=== PATIENT | female | born 1985 | race African-American/Black ===

== ENCOUNTER 2017-02-13 11:00 | Emergency (ER) | payer SELFPAY ==
[2017-02-13 11:10] VITALS: BP 122/83; PULSE 86; TEMP 98.6; BMI 25.4
--- NOTE | 2017-02-13 11:26 | PDOC ---
History of Present Illness - General Chief Complaint: Ear Problem Stated Complaint: EAR PROBLEM Time Seen by Provider: 02/13/17 11:23 History Source: Patient Exam Limitations: No Limitations - History of Present Illness Initial Comments: CHIEF COMPLAINT: 31 y/o afebrile female with no significant PMH c/o ear pain for the past few days. HISTORY OF PRESENT ILLNESS: The patient does admit to constantly using q-tips. She denies f/c, n/v/d, foul smelling discharge from ears, recent swimming. Vital signs on arrival are within normal limits. REVIEW OF SYSTEMS: GENERAL/CONSTITUTIONAL: No fever/chills. No weakness. No weight change. HEAD, EYES, EARS, NOSE AND THROAT: No change in vision. +ear pain. No sore throat. CARDIOVASCULAR: No chest pain or shortness of breath. RESPIRATORY: No cough, wheezing, or hemoptysis. GASTROINTESTINAL: No vomiting, diarrhea, constipation. GENITOURINARY: No dysuria, frequency, or change in urination. MUSCULOSKELETAL: No joint or muscle swelling or pain. No neck or back pain. SKIN: No rash or easy bruising. NEUROLOGIC: No headache, vertigo, loss of consciousness, or loss of sensation. PHYSICAL EXAM: GENERAL: The patient is awake, alert, and fully oriented, in no acute distress. She is well appearing, ambulatory, in NAD or obvious discomfort. HEAD: Normal with no signs of trauma. ENT: Pupils equal, round and reactive to light, extraocular movements intact, sclera anicteric, conjunctiva clear. Right canal inflammed and erythematous. Left canal minimally inflammed and erythematous. TMs are normal b/l ears without signs of TM rupture. No mastoid TTP. LUNGS: Clear to auscultation bilaterally. Normal excursion. No respiratory distress or use of accessory muscles. CV: RRR, S1/S2, no MRG. Cap refill < 2 sec. ABDOMEN: Soft, non-distended, non-tender even to deep palpation, no hepatomegaly or splenomegaly, no masses. EXTREMITIES: Normal range of motion, no edema. NEUROLOGICAL: Normal speech, normal gait. CN II-XII grossly intact. PSYCH: Normal mood, normal affect. SKIN: Warm, dry, normal turgor, no rashes or lesions noted. Past History - Past Medical History Allergies/Adverse Reactions: Allergies Allergy/AdvReac Type Severity Reaction Status Date / Time No Known Allergies Allergy Verified 02/13/17 11:04 Home Medications: Ambulatory Orders Neomycin/Polymyxn/Hc [Cortisporin Otic Suspenstion -] 5 drop AU Q4HWA #500 drops 02/13/17 Other medical history: none - Psycho/Social/Smoking Cessation Hx Anxiety: No Suicidal Ideation: No Smoking History: Current every day smoker Have you smoked in the past 12 months: Yes Number of Cigarettes Smoked Daily: 5 Information on smoking cessation initiated: Yes 'Breaking Loose' booklet given: 02/13/17 Hx Alcohol Use: No Drug/Substance Use Hx: No Substance Use Type: None *Physical Exam - Vital Signs Last Vital Signs Temp Pulse Resp BP Pulse Ox 98.6 F 86 18 122/83 100 02/13/17 11:04 02/13/17 11:04 02/13/17 11:04 02/13/17 11:04 02/13/17 11:04 Medical Decision Making - Medical Decision Making A/P: 31 y/o afebrile female with b/l otitis externa. Plan is to send rx for corticosporin. Instructed her to take as prescribed and f/u with her doctor within 1 week. Instructed her to return to the ER with any worsening or concerning symptoms. The patient verbalizes understanding of all instructions, has no further questions and is awaiting discharge. *DC/Admit/Observation/Transfer Diagnosis at time of Disposition: Otitis externa Qualifiers: Otitis externa type: unspecified type Chronicity: acute Laterality: bilateral Qualified Code(s): H60.503 - Unspecified acute noninfective otitis externa, bilateral - Discharge Dispostion Disposition: HOME Condition at time of disposition: Good - Prescriptions Prescriptions: Neomycin/Polymyxn/Hc [Cortisporin Otic Suspenstion -] 5 drop AU Q4HWA #500 drops - Patient Instructions Printed Discharge Instructions: DI for Otitis Externa Additional Instructions: Discharge Instructions: -A prescription for ear drops has been sent to your pharmacy; Please use as prescribed -Follow up with your doctor within 1 week -Return to the ER with any worsening or concerning symptoms
== END 2017-02-13 11:40 | disposition home or self-care (01) ==
LOC: JER 11:00 → JERFT 11:00
DX: H60.503 Unspecified acute noninfective otitis externa, bilateral (principal); F17.210 Nicotine dependence, cigarettes, uncomplicated
CPT/HCPCS: 99281-25

== ENCOUNTER 2017-02-28 06:55 | Emergency (ER) | payer SELFPAY ==
[2017-02-28 07:15] VITALS: BP 115/80; PULSE 87; TEMP 98.3; BMI 25.4
--- NOTE | 2017-02-28 07:31 | PDOC ---
History of Present Illness - General Chief Complaint: Ear Problem Stated Complaint: LFT EAR PROBLEM Time Seen by Provider: 02/28/17 07:20 History Source: Patient Exam Limitations: No Limitations - History of Present Illness Initial Comments: 02/28/17 07:26 31-year-old female presents to the ED with complaints of continual bilateral ear pain with itching. patient states was seen here a few weeks ago was treated for ear canal infection which she states did use the drops for about 4 days but then the remainder of the fluid leaked out her pocketbook and did not follow-up for refill. Patient states was waiting to see if her symptoms got better but since they didn't she decided come to the ER today. Patient denies fever, chills , decreased hearing, neck pain, neck stiffness, sore throat, or headache. Timing/Duration: changing over time Severity: mild Associated Symptoms: reports: denies symptoms. denies: fever/chills Past History - Past Medical History Allergies/Adverse Reactions: Allergies Allergy/AdvReac Type Severity Reaction Status Date / Time No Known Allergies Allergy Verified 02/28/17 07:13 Home Medications: Ambulatory Orders Neomycin/Polymyxn/Hc [Cortisporin Otic Suspenstion -] 5 drop AU Q4HWA #500 drops 02/13/17 Other medical history: none - Reproductive History LMP Normal: Yes Is Patient Now?: No - Psycho/Social/Smoking Cessation Hx Anxiety: No Suicidal Ideation: No Smoking History: Current every day smoker Have you smoked in the past 12 months: Yes Number of Cigarettes Smoked Daily: 5 Information on smoking cessation initiated: Yes 'Breaking Loose' booklet given: 02/28/17 Hx Alcohol Use: No Drug/Substance Use Hx: No Substance Use Type: None Patient Lives Alone: No Review of Systems - Review of Systems Able to Perform ROS?: Yes Constitutional: No: Symptoms Reported HEENTM: Yes: Ear Pain, Ear Discharge (intermittent nonodorous clear /buck from left ear) Respiratory: No: Symptoms reported Integumentary: No: Symptoms Reported Neurological: No: Symptoms reported *Physical Exam - Vital Signs Last Vital Signs Temp Pulse Resp BP Pulse Ox 98.3 F 87 18 115/80 100 02/28/17 07:14 02/28/17 07:14 02/28/17 07:14 02/28/17 07:14 02/28/17 07:14 - Physical Exam General Appearance: Yes: Nourished, Appropriately Dressed. No: Apparent Distress HEENT: positive: EOMI, BUD, Pharynx Normal, TM Erythema, Other (moist and inflamed bilateral ear canals. Noted nonodorous clear drainage from left ear). negative: Pale Conjunctivae, TM Bulging Neck: positive: Supple. negative: Lymphadenopathy (R), Lymphadenopathy (L) Respiratory/Chest: positive: Lungs Clear, Normal Breath Sounds. negative: Respiratory Distress, Accessory Muscle Use Cardiovascular: positive: Regular Rhythm, Regular Rate. negative: Murmur Integumentary: positive: Normal Color, Warm, Moist Neurologic: positive: Motor Strength 5/5 (ambulatory) Medical Decision Making - Medical Decision Making 02/28/17 07:29 Patient here with continual bilateral ear pain and itchiness along with drainage from the left ear. Patient denies change in hearing which she states initially a few weeks ago did have muffled hearing. Patient on exam appears to have bilateral otitis externa and bilateral otitis media. Patient will be given a renewal for Cortisporin ear drops along with amoxicillin. *DC/Admit/Observation/Transfer Diagnosis at time of Disposition: Otitis externa, Otitis media - Discharge Dispostion Disposition: HOME Condition at time of disposition: Good - Patient Instructions Printed Discharge Instructions: Middle Ear Infection Additional Instructions: As recommended keep area clean and dry and only use the eardrops as recommended. Please take antibiotics by mouth until completed. May take Motrin for discomfort
== END 2017-02-28 08:30 | disposition home or self-care (01) ==
LOC: JER 06:55
DX: H60.503 Unspecified acute noninfective otitis externa, bilateral (principal); H66.93 Otitis media, unspecified, bilateral
CPT/HCPCS: 99281-25

== ENCOUNTER 2017-03-14 12:55 | Emergency (ER) | payer OTHER ==
[2017-03-14 13:04] VITALS: BP 138/73; PULSE 87; TEMP 98; BMI 25.4
--- NOTE | 2017-03-14 13:59 | PDOC ---
History of Present Illness - General Chief Complaint: Ear Problem Stated Complaint: EAR ACHE Time Seen by Provider: 03/14/17 13:35 Past History - Past History Allergies/Adverse Reactions: Allergies No Known Allergies Allergy (Verified 03/14/17 13:06) Home Medications: Ambulatory Orders NK [No Known Home Medication] 03/14/17 Tetanus Status: Unknown - Social History Smoking Status: Current every day smoker Number of Cigarettes Smoked Per Day: 5 *Physical Exam - Vital Signs Last Vital Signs Temp Pulse Resp BP Pulse Ox 98 F 87 18 138/73 99 03/14/17 13:02 03/14/17 13:02 03/14/17 13:02 03/14/17 13:02 03/14/17 13:02
--- NOTE | 2017-03-14 14:00 | PDOC ---
History of Present Illness - General Chief Complaint: Ear Problem Stated Complaint: EAR ACHE Time Seen by Provider: 03/14/17 13:35 History Source: Patient Exam Limitations: No Limitations - History of Present Illness Initial Comments: 03/14/17 13:59 Mother came in for evaluation of 8 months of ear pain bilaterally. States is been seen on a number of occasions and given multiple chronic with no resolved. Has not followed up with ear nose and throat doctor, states her son was coming to emergency department today so had additional evaluation 03/14/17 14:01 Timing/Duration: unsure Severity: mild Associated Symptoms: reports: malaise. denies: cough, diaphoresis, fever/chills , headaches Past History - Travel Traveled outside of the country in the last 30 days: No Close contact w/someone who was outside of country & ill: No - Past Medical History Allergies/Adverse Reactions: Allergies Allergy/AdvReac Type Severity Reaction Status Date / Time No Known Allergies Allergy Verified 03/14/17 13:06 Home Medications: Ambulatory Orders Acetic Acid/Hydrocortisone [Hydrocortison-Acetic Acid Soln] 10 ml OT BID #1 drops 03/14/17 - Psycho/Social/Smoking Cessation Hx Anxiety: No Suicidal Ideation: No Smoking History: Current every day smoker Have you smoked in the past 12 months: Yes Number of Cigarettes Smoked Daily: 5 Information on smoking cessation initiated: No 'Breaking Loose' booklet given: 02/28/17 Hx Alcohol Use: No Drug/Substance Use Hx: No Substance Use Type: None Review of Systems - Review of Systems Able to Perform ROS?: Yes Is the patient limited Citizen [place] proficient: Yes Constitutional: Yes: Symptoms Reported, See HPI, Malaise HEENTM: Yes: Symptoms Reported, See HPI, Ear Discharge Respiratory: Yes: Symptoms reported, See HPI *Physical Exam - Vital Signs Last Vital Signs Temp Pulse Resp BP Pulse Ox 98 F 87 18 138/73 99 03/14/17 13:02 03/14/17 13:02 03/14/17 13:02 03/14/17 13:02 03/14/17 13:02 - Physical Exam General Appearance: Yes: Nourished, Appropriately Dressed. No: Apparent Distress HEENT: positive: BUD, Pharynx Normal. negative: Normal ENT Inspection, TMs Normal (and agitative canals bilaterally, TM appears red and opaque with whitish exudate), Tonsillar Erythema Neck: positive: Supple. negative: Tender, Lymphadenopathy (R), Lymphadenopathy (L) Respiratory/Chest: positive: Lungs Clear, Normal Breath Sounds Cardiovascular: positive: Regular Rhythm Musculoskeletal: positive: Normal Inspection Extremity: positive: Normal Capillary Refill Integumentary: positive: Normal Color, Dry Neurologic: positive: helper [employer] II-XII NML intact, Fully Oriented, Alert, Normal Mood/ Affect, Normal Response, Motor Strength 12/25 Medical Decision Making - Medical Decision Making 03/14/17 14:23 Bilateral otitis externa, probable fungal, relating to non-curative measures with polymyxin drops 2. We'll treat with acetic acid drops 03/14/17 14:24 *DC/Admit/Observation/Transfer Diagnosis at time of Disposition: Otitis externa of both ears Qualifiers: Otitis externa type: unspecified type Chronicity: acute Qualified Code(s): H60.503 - Unspecified acute noninfective otitis externa, bilateral - Discharge Dispostion Disposition: HOME Condition at time of disposition: Stable Admit: No - Referrals Referrals: Viet Wing MD [Staff Physician] - - Patient Instructions Printed Discharge Instructions: DI for Otitis Externa Additional Instructions: Rest, lots of fluids; water, teas, soups Hot wet soaks to ear/hot packs may help relieve some pain May use [id number] anesthetic drops to ears to help relieve some pain Avoid getting water in ear, may use alcohol drops to help dry up any water retained in ears Severe using earplugs when swimming to avoid any water retention Continue ibuprofen or Tylenol for pain and fevers acetic otic solution 3-5 drops 3 times a day for 5 days followup with private physician / ENT doctor in 2-3 days Return to emergency department or see private physician immediately for swelling , redness, from ears, or fevers,
== END 2017-03-14 14:32 | disposition home or self-care (01) ==
LOC: JERFT 12:55
DX: H60.503 Unspecified acute noninfective otitis externa, bilateral (principal); F17.210 Nicotine dependence, cigarettes, uncomplicated
CPT/HCPCS: 99281-25

== ENCOUNTER 2021-04-23 19:46 | Emergency (ER) | payer OTHER ==
[2021-04-23 20:03] VITALS: BP 113/78; PULSE 72; TEMP 98.2; BMI 23.8
== END 2021-04-23 20:25 | disposition home or self-care (01) ==
LOC: FER 19:46 → JER 19:46 → FER 20:25
DX: H60.332 Swimmer's ear, left ear (principal)
CPT/HCPCS: 99282-25

== ENCOUNTER 2021-08-13 19:30 | Emergency (ER) | payer OTHER ==
[2021-08-13 19:48] VITALS: BP 121/84; PULSE 72; TEMP 99.1; BMI 23.8
== END 2021-08-13 19:56 | disposition home or self-care (01) ==
LOC: FER 19:30
DX: M79.10 Myalgia, unspecified site (principal)
CPT/HCPCS: 99283-25; C9803; U0003; U0005

== ENCOUNTER 2023-03-08 19:08 | Emergency (ER) | payer OTHER ==
[2023-03-08 19:19] VITALS: BP 126/89; PULSE 70; RESP 16; TEMP 98.8; BMI 23.2
[2023-03-08] MEDS ORDERED: DIPHTH,PERTUSS(ACELL),TET 0.5 ML DISP.SYRIN IM ONE ×2 (19:23→19:27)
== END 2023-03-08 19:39 | disposition home or self-care (01) ==
LOC: FER 19:08
PROC: 3E0234Z Introduction of Serum, Toxoid and Vaccine into Muscle, Percutaneous Approach (ICD-10-PCS; principal; 2023-03-08)
DX: S01.551A Open bite of lip, initial encounter (principal); W54.0XXA Bitten by dog, initial encounter
CPT/HCPCS: 90471; 90715; 99283-25